=== PATIENT | male | born 1985 | race Two or more races ===

== ENCOUNTER 2017-06-27 19:29 | Emergency (ER) | payer SELFPAY ==
[~2017-06-27] VITALS: Ht 182.9 cm; Wt 81.6 kg
--- NOTE | 2017-06-27 19:30 | NUR ---
pt bibra. c/o dizziness and rt sided neck pain. per pt was playing hockey, when he got hit by the puck on the rt side of his neck. 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 On arrival pt is a/ox4, no s/s of acute distress or sob noted. respirations even and unlabored. vs stable at this time. pt waiting comfortably in er bed 2.
[2017-06-27] MEDS ORDERED: IOHEXOL-350 100 ML VIAL IV ONE (19:46)
[2017-06-27] MEDS ORDERED: IV NS 0.9% 250 ML IV ONE (19:47)
[2017-06-27 19:50] LABS: BASOPHILS # (AUTO) 0.1 /CMM (0.0-0.2); BASOPHILS % (AUTO) 0.5 % (0.0-2.0); EOSINOPHILS # (AUTO) 0.2 /CMM (0.0-0.7); EOSINOPHILS % (AUTO) 1.4 % (0.0-6.0); HEMATOCRIT 41 % (39-51); LYMPHOCYTES # (AUTO) 2.2 /CMM (0.8-4.8); LYMPHOCYTES % (AUTO) 19.9 % (20.0-44.0); MEAN CORPUSCULAR HEMOGLOBIN 31 PG (26.0-33.0); MEAN CORPUSCULAR HGB CONC 34 g/dl (31.0-36.0); MEAN CORPUSCULAR VOLUME 91 fL (80-96); MONOCYTES # (AUTO) 0.6 /CMM (0.1-1.30); MONOCYTES % (AUTO) 5.5 % (2.0-12.0); NEUTROPHILS % (AUTO) 72.7 % (43.0-81.0); PLATELET COUNT (AUTO) 269 /CMM (150-450); RDW COEFFICIENT OF VARIATION 11.9 (11.5-15.0); RED BLOOD CELL COUNT(AUTO) 4.52 MIL/uL (4.5-6.0); WHITE BLOOD COUNT (AUTO) 11.1 K/uL (4.3-11.0)
[2017-06-27] MEDS ORDERED: ACETAMINOPHEN 325 MG TABLET ONE (19:53)
--- NOTE | 2017-06-27 19:57 | NUR ---
Pt TRANSPORTED VIA WHEELCHAIR TO GET CT SCAN
[2017-06-27 19:59] LABS: CALCIUM, SERUM 8.7 mg/dL (8.5-10.1); CREATININE 1.4 mg/dL (0.6-1.3); POTASSIUM 4.1 mmol/L (3.5-5.1)
[2017-06-27] MEDS: ACETAMINOPHEN 325 MG TABLET PO ONE (19:59)
--- NOTE | 2017-06-27 20:25 | NUR ---
pt returned from ct scan via wheelchair. respirations even and unlabored.
--- NOTE | 2017-06-27 20:33 | NUR ---
previous RAC #18g infiltrated, removed. started new iv access on Lt forearm, #20g. started on ivf ns.
[2017-06-27] MEDS: IV NS 0.9% 500 ML BAG IV ONE (20:34)
--- NOTE | 2017-06-27 21:21 | NUR ---
Pt READY TO BE D/C HOME. WAITING FOR IMAGING CD TO BE DELIVERED. IV ON LFA REMOVED, COVERED WITH 2X2 GUAZE & SECURED WITH TAPE. Pt's VS STABLE. RESPIRATIONS EVEN AND UNLABORED.
--- NOTE | 2017-06-27 21:27 | NUR ---
Patient discharged to home in stable condition. Written and verbal after care instructions given. Patient verbalizes understanding of instruction. CD Imaging given to pt. PT DC on foot, ambulatory, gait steady. No s/s of acute distress or sob noted. vs stable.
[2017-06-27 21:29] VITALS: BP 101/61
== END 2017-06-27 21:30 | disposition home or self-care (01) ==
LOC: ER 19:30
DX: R55 Syncope and collapse (principal); S10.83XA Contusion of other specified part of neck, initial encounter; X58.XXXA Exposure to other specified factors, initial encounter; Y93.22 Activity, ice hockey; Y92.89 Other specified places as the place of occurrence of the external cause; Y99.8 Other external cause status
CPT/HCPCS: 36415; 70450-TC; 70498-TC; 80048-TC; 85025-TC; A4606; J7040; J7050; Q9967; Z7610